=== PATIENT | male | born 1945 | race Caucasian/White ===

== ENCOUNTER 2025-04-21 09:29 | Outpatient (CLI) | payer MEDICARE, OTHER ==
[~2025-04-21 09:29] MED LIST: IODIXANOL 320 MG/ML INFUS..BTL 100ML IV ONE
[2025-04-21 10:00] LABS: BASOPHILS # (AUTO) 0.1 X10'3 (0-0.2); BASOPHILS % (AUTO) 1.1 % (0-1); EOSINOPHILS # (AUTO) 0.4 X10'3 (0-0.9); EOSINOPHILS % (AUTO) 5.2 % (0-6); HEMATOCRIT 44.7 % (42.0-52.0); HEMOGLOBIN 15.3 g/dl (14.0-17.9); LYMPHOCYTES # (AUTO) 2.7 X10'3 (1.1-4.8); LYMPHOCYTES % (AUTO) 37.5 % (21-51); MEAN CORPUSCULAR HEMOGLOBIN 32.9 PG (27.0-31.0); MEAN CORPUSCULAR HGB CONC 34.2 g/dL (33.0-36.5); MEAN CORPUSCULAR VOLUME 96.1 FL (78-98); MONOCYTES # (AUTO) 0.7 X10'3 (0-0.9); MONOCYTES % (AUTO) 10.3 % (2-12); NEUTROPHILS # (AUTO) 3.3 X10'3 (1.8-7.7); NEUTROPHILS % (AUTO) 45.9 % (42-75); PLATELET COUNT 247 X10'3 (140-440); RED BLOOD COUNT 4.66 X10'6 (4.70-6.10); RED CELL DISTRIBUTION WIDTH 14.4 % (11.5-14.5); WHITE BLOOD COUNT 7.2 X10'3 (4.5-11.0)
[2025-04-21 10:11] LABS: APTT 25 SECONDS (22-32); PROTHROMBIN TIME 10.7 SECONDS (9.0-12.0)
[2025-04-21 10:25] LABS: ALANINE AMINOTRANSFERASE 32 U/L (12-78); ALBUMIN 3.3 G/DL (3.4-5.0); ALBUMIN/GLOBULIN RATIO 0.8 (1.1-1.5); ALKALINE PHOSPHATASE 86 IU/L (46-116); ASPARTATE AMINO TRANSFERASE 22 U/L (10-37); BILIRUBIN,TOTAL 0.4 MG/DL (0.1-1.0); BLOOD UREA NITROGEN 25 MG/DL (7-18); BUN/CREATININE RATIO 21.4 (10.0-20.0); CALCIUM 8.9 MG/DL (8.5-10.1); CHLORIDE 102 MMOL/L (99-107); CREATININE 1.17 MG/DL (0.60-1.10); GLUCOSE 290 MG/DL (70-104); PRO BRAIN NATRIURETIC PEPTIDE 375 PG/ML (0-450); TOTAL CARBON DIOXIDE 27.8 MMOL/L (24-32); TOTAL PROTEIN 7.3 G/DL (6.4-8.2); eGFR 60 ML/MIN
[2025-04-21 10:30] LABS: ANION GAP 1 (8-16); SODIUM 131 MMOL/L (135-145)
--- NOTE | 2025-04-21 11:28 | RADIOLOGY REPORT ---
EXAM: DI CHEST,TWO VIEWS CLINICAL HISTORY: TAVR; pain COMPARISON: None TECHNIQUE: Frontal and lateral view of the chest was obtained FINDINGS: Lines and Tubes: None Lungs: No focal consolidation. Pleura: No effusion. No pneumothorax. Cardiomediastinal contours: Unremarkable. Atherosclerotic vascular calcifications of the thoracic ao rta are noted. Bones: No acute osseous abnormality. Chronic right rib fractures. IMPRESSION: No acute cardiopulmonary disease.
--- NOTE | 2025-04-21 12:17 | VASCULAR REPORT ---
Carotid Duplex Date: 04/21/2025 10:35 AM Clinical History: snycope Comparison: None Technique: Duplex Doppler evaluation of the extracranial carotid and vertebral arteries including col or Doppler and spectral/pulsed waveform analysis was performed. Findings: RIGHT SIDE: The peak systolic velocities are 75 cm/s in the distal CCA and 81 cm/s in the proximal ICA.The ICA/CC A ratio is 1.1. The external carotid artery is patent with peak systolic velocity of 54 cm/s proximally. The subclavian artery is patent with peak systolic velocity of 66 cm/s proximally. There is appropriate antegrade flow in the right vertebral artery. LEFT SIDE: The peak systolic velocities are 59cm/s in the distal CCA and 62 cm/s in the proximal ICA.. The ICA/ CCA ratio is 1.1. The external carotid artery is patent with peak systolic velocity of 52 cm/s proximally. The subclavian artery is patent with peak systolic velocity of 84 cm/s proximally. There is appropriate antegrade flow in the left vertebral artery. IMPRESSION: No hemodynamically significant stenosis noted in the right carotid system. No hemodynamically significant stenosis noted in the left carotid system. Reference: Radiology 2003; [id number]
--- NOTE | 2025-04-23 13:01 | RADIOLOGY REPORT ---
Procedure: CT CTA TAVR Reason for study/Clinical History: Chest pain, evaluate for dissection. Comparison Study: None Exam Date: 04/21/2025 11:07 AM TECHNIQUE: Multiplanar reformatted images were generated from volumetric data acquired on a multidetector CT [facility]. Cardiac gating was utilized. Arterial phase images were obtained through the chest, abdomen and pelvis following intravenous administration of contrast material. 100 mL visipaque [address] dose reduction techniques were utilized. 3-D reconstructions were performed on an independent work station. Radiation Dose Information: CT Dose: CTDI volume is 65 mGy. Dose-length product is 2269 mGy*cm FINDINGS: Vascular: Aortic measurements: Aortic annulus: 26.9 x 23.4 mm Sinus of [place]sal[place]: right cusp 37.7 mm, left cusp 33.8 mm, non-coronary cusp 38.5 mm Right coronary distance: 15.8 Left coronary distance: 15 ST junction 25.4 mm Ascending aorta 36.4 mm Aortic arch 25 mm Descending aorta 25 mm Aortic hiatus 23 mm Upper abdominal aorta 22 mm Minimal abdominal aorta 15.7 mm Right common iliac 10 mm, tortuosity index 1.31 Left common iliac 5.45 mm, tortuosity index 1.24 There is normal caliber of aorta. No aortic dissection. Aortic arch anatomy is conventional. There is conventional coronary artery anatomy. Scattered calcified atherosclerotic plaque. No central pulmonary embolism. There is normal dimension of the main pulmonary artery. Heart is normal. There are no intracardiac filling defects. No pericardial effusion. Mediastinum: Subcentimeter mediastinal lymph nodes. Lungs: Subpleural reticulation septal thickening and ground-glass opacity in both lungs. Pleura: No effusion or pneumothorax. Chest wall: No acute abnormality. Abdomen and Pelvis: Liver: Normal in appearance. Gallbladder: Surgically absent. Spleen: Normal in appearance. Pancreas: Normal in appearance. Adrenals: Normal in appearance. Kidneys: Normal in appearance. Bowel: Normal in appearance. Peritoneum: No free air or free fluid. Lymph nodes: Mildly prominent lymph nodes in the right groin. Pelvic structures: No pelvic mass. Bones: Grade 1 spondylolisthesis of L5 on S1. Multilevel degenerative disease. IMPRESSION: 1. TAVR planning with vascular measurements as described above. 2. Moderate fibrotic lung disease. Superimposed infectious/ inflammatory process is not entirely excl uded. Mildly prominent lymph nodes in the right groin. This can be further evaluated ultrasound. Grad e 1 spondylolisthesis of L5 on S1. HS:Y
== END 2025-04-21 23:59 | disposition home or self-care (01) ==
LOC: RAD 09:29
PROVIDERS: ATTEND Internal Medicine Cardiovascular Disease
DX: J84.10 Pulmonary fibrosis, unspecified (principal); I35.0 Nonrheumatic aortic (valve) stenosis; R06.02 Shortness of breath; I65.29 Occlusion and stenosis of unspecified carotid artery; M43.17 Spondylolisthesis, lumbosacral region; R59.0 Localized enlarged lymph nodes
CPT/HCPCS: 36415; 71046; 71275; 74174; 75572; 80053; 83880; 85025; 85610; 85730; 93880; Q9967